=== PATIENT | male | born 1965 | race Caucasian/White ===

== ENCOUNTER → 2020-10-28 | Outpatient (CLI) | payer BC ==
[~2020-10-28] MED LIST: AZOR 5-20 MG T1 EACH PO; CLARITIN 10MG T10 MG PO; PERCOCET 7.5-31 EACH PO; PROTONIX40 MG PO; TEKTURNA150 MG PO; VITAMIN D250000 UNIT PO
== END ==
LOC: KOH-I 11:00
DX: R31.9 Hematuria, unspecified (principal); R10.9 Unspecified abdominal pain; N28.89 Other specified disorders of kidney and ureter; N40.0 Benign prostatic hyperplasia without lower urinary tract symptoms; N32.89 Other specified disorders of bladder
CPT/HCPCS: 74176

== ENCOUNTER → 2021-01-12 | Outpatient (CLI) | payer BC | LOC: KOH-I 10:25 | DX: M75.101 Unspecified rotator cuff tear or rupture of right shoulder, not specified as traumatic (principal); S43.431A Superior glenoid labrum lesion of right shoulder, initial encounter | CPT/HCPCS: 73221 ==

== ENCOUNTER → 2021-08-12 | Outpatient (CLI) | payer BC | LOC: KOH-I 13:39 | DX: M25.511 Pain in right shoulder (principal); R93.7 Abnormal findings on diagnostic imaging of other parts of musculoskeletal system | CPT/HCPCS: 73221 ==

== ENCOUNTER → 2021-09-03 | Outpatient (CLI) | payer BC | LOC: KOH-I 12:38 | DX: M54.2 Cervicalgia (principal); M47.812 Spondylosis without myelopathy or radiculopathy, cervical region; M48.02 Spinal stenosis, cervical region; M25.78 Osteophyte, vertebrae | CPT/HCPCS: 72141 ==